=== PATIENT | female | born 1985 | race Two or more races ===

== ENCOUNTER 2024-05-07 10:37 | Emergency (ER) | payer OTHER ==
[~2024-05-07] VITALS: Ht 157.5 cm; Wt 53.5 kg
[2024-05-07] MEDS ORDERED: FAMCICLOVIR500 MG PO (11:07)
[2024-05-07 11:18] VITALS: BP 98/65; O2SAT 98
== END 2024-05-07 11:21 | disposition home or self-care (01) ==
LOC: ER 10:39
DX: B02.8 Zoster with other complications (principal)